=== PATIENT | female | born 1960 | race Caucasian/White ===

== ENCOUNTER → 2025-01-14 07:07 | Outpatient (REF) | payer OTHER, SELFPAY | LOC: HWRAD 07:07 | PROVIDERS: ATTENDING PHYSICIAN Student in an Organized Health Care Education/Training Program; FAMILY PHYSICIAN Physician Assistant | DX: R59.0 Localized enlarged lymph nodes (principal) | CPT/HCPCS: 76536 ==

== ENCOUNTER → 2025-01-22 10:20 | Outpatient (REF) | payer OTHER, SELFPAY | LOC: CLAB 10:20 | PROVIDERS: ATTENDING PHYSICIAN Student in an Organized Health Care Education/Training Program | DX: R59.0 Localized enlarged lymph nodes (principal) | CPT/HCPCS: 88173 ==

== ENCOUNTER → 2025-02-11 12:01 | Outpatient (REF) | payer OTHER, SELFPAY ==
[2025-02-11 12:58] VITALS: BP 175/96; BP_SYST 79
== END ==
LOC: RADI 12:01
PROVIDERS: ATTENDING PHYSICIAN Student in an Organized Health Care Education/Training Program
DX: D37.039 Neoplasm of uncertain behavior of the major salivary glands, unspecified (principal); E04.1 Nontoxic single thyroid nodule
CPT/HCPCS: 10005; 20206; 88172; 88173; 88177; 88305; 88341; 88342

== ENCOUNTER → 2025-02-23 07:11 | Outpatient (REF) | payer OTHER, SELFPAY | LOC: RAD 07:11 | PROVIDERS: ATTENDING PHYSICIAN Student in an Organized Health Care Education/Training Program; FAMILY PHYSICIAN Physician Assistant | DX: K11.8 Other diseases of salivary glands (principal) | CPT/HCPCS: 70491; Q9967 ==